=== PATIENT | female | born 1955 | race Caucasian/White ===

== ENCOUNTER → 2024-03-25 16:44 | Outpatient (REF) | payer MEDICARE, OTHER, SELFPAY | LOC: PAVMRI 16:44 | PROVIDERS: ATTENDING PHYSICIAN Physician Assistant; FAMILY PHYSICIAN Family Medicine | DX: M25.511 Pain in right shoulder (principal) | CPT/HCPCS: 73221 ==

== ENCOUNTER → 2024-05-06 14:46 | Outpatient (REF) | payer MEDICARE, OTHER, SELFPAY | LOC: MRI 3T 14:46 | PROVIDERS: ATTENDING PHYSICIAN Otolaryngology; FAMILY PHYSICIAN Family Medicine | DX: H90.A21 Sensorineural hearing loss, unilateral, right ear, with restricted hearing on the contralateral side (principal); H93.11 Tinnitus, right ear | CPT/HCPCS: 70553; A9575 ==

== ENCOUNTER → 2024-07-01 12:37 | Outpatient (REF) | payer MEDICARE, OTHER, SELFPAY | LOC: HWWDC 12:37 | PROVIDERS: ATTENDING PHYSICIAN Family Medicine | DX: Z12.31 Encounter for screening mammogram for malignant neoplasm of breast (principal) | CPT/HCPCS: 77063; 77067 ==

== ENCOUNTER → 2024-07-21 15:08 | Outpatient (REF) | payer MEDICARE, OTHER, SELFPAY | LOC: WDC 15:08 | PROVIDERS: ATTENDING PHYSICIAN Family Medicine | DX: R92.30 Dense breasts, unspecified (principal) | CPT/HCPCS: 76641 ==

== ENCOUNTER → 2024-08-24 12:33 | Outpatient (REF) | payer MEDICARE, OTHER, SELFPAY | LOC: HWRAD 12:33 | PROVIDERS: ATTENDING PHYSICIAN Internal Medicine Interventional Cardiology; FAMILY PHYSICIAN Family Medicine | DX: I71.21 Aneurysm of the ascending aorta, without rupture (principal) | CPT/HCPCS: 71275; Q9967 ==

== ENCOUNTER → 2024-10-06 08:08 | Outpatient (REF) | payer MEDICARE, OTHER, SELFPAY ==
--- NOTE | 2024-10-06 14:00 | OID.BR.INTR ---
[facility] Breast Navigator - Initial
- -
Date of Contact: 10/06/24
Met with patient. Patient given written information on navigator services available at [facility]. Will follow up as needed per protocol.
== END ==
LOC: WDC 08:08
PROVIDERS: ATTENDING PHYSICIAN Surgery
DX: N63.14 Unspecified lump in the right breast, lower inner quadrant (principal)
CPT/HCPCS: 88305; 19083; A4648

== ENCOUNTER → 2024-12-29 14:55 | Outpatient (REF) | payer MEDICARE, OTHER, SELFPAY | LOC: WDC 14:55 | PROVIDERS: ATTENDING PHYSICIAN Surgery; FAMILY PHYSICIAN Family Medicine | DX: R92.8 Other abnormal and inconclusive findings on diagnostic imaging of breast (principal) | CPT/HCPCS: 76642 ==

== ENCOUNTER 2025-06-14 13:54 | Emergency (ER) | payer MEDICARE, OTHER, SELFPAY ==
[2025-06-14 13:57] VITALS: BP 134/98
[2025-06-14] MEDS: ADACEL 0.5 ML IM (14:55)
--- NOTE | 2025-06-14 14:56 | ED.SKININJ ---
HPI-Injury
General
Chief Complaint: Skin Surface Trauma
Source: patient
Exam Limitations: none
Time Seen by Provider: 06/14/25 14:16
History of Present Illness-Injury
Initial Injury comments:
70 year old female [id number] presents with laceration to right ring finger she sustained today using a hedge tremor. Last tetanus unknown. She denies loss of function. No other complaints
Phy Exam
Physical Exam
Physical Exam:
General: Well-appearing female no acute respiratory distress
Skin: 1 cm transverse laceration volar aspect distal portion right ring finger. This is beyond the DIP flexion crease. There is no tendon involvement or significant bleeding
Vascular: Brisk capillary refill to the tip of the finger
Musculoskeletal exam: Good range of motion right ring finger
Course
Orders/Labs/Results
Orders:
Orders
06/14/25 14:51
Tetanus/Diphth/Acelpertussis [Adacel] 0.5 ml IM .ONCE ONE
Vital Signs
Initial and Last Documented VS:
Initial Vital Signs
Temp Pulse Resp BP Pulse Ox
98 F 86 16 134/98 97
06/14/25 13:57 06/14/25 13:57 06/14/25 13:57 06/14/25 13:57 06/14/25 13:57
Last Documented Vital Signs
Temp Pulse Resp BP Pulse Ox
98 F 86 16 134/98 97
06/14/25 13:57 06/14/25 13:57 06/14/25 13:57 06/14/25 13:57 06/14/25 13:57
MDM/Problems Addressed
Differential Diagnosis Includes:
Laceration right ring finger. The wound was copiously irrigated with saline solution and anesthetized in a local fashion using 1% plain lidocaine. 5-0 Prolene sutures were used in a simple interrupted fashion to provide wound edge approximation
hemostasis. A total of 4 sutures were required. Tetanus vaccine updated. Because was applied. Wound care instructions were given. Stable for discharge
*Pulse Oximetry
SaO2: 97
Oxygen Mode of Delivery: Room air
Patient hypoxic: no
*Critical Care Note
Total Time (30-74mins, 75-104mins- exclusive of procedures): Not Applicable
ED Attending Note
-
Portions of this chart may have been created with voice recognition software.� Occasional wrong word or��sound alike� substitutions may have occurred due to the inherent limitations of voice recognition software.
Discharge Plan
Departure
Patient Disposition: Home (Routine Discharge)
Date of Disposition: 06/14/25
Time of Disposition: 15:01
Patient with high blood pressure during this ER visit?: No
Discharge Problem:
Laceration
Instructions: Laceration Repair With Stitches (DC)
Referrals:
Dionne Nuñez DO [Family Provider, Family Practice]
Activity Restrictions/Additional Instructions:
Keep clean. Have sutures removed in 10 to 14 days. Watch for signs of infection. Return if needed otherwise
Interventions
Interventions:
*Risk Screen - Suicide Last Done: 06/14/25 13:57
*Neglect/Abuse Screening Last Done: 06/14/25 13:57
Discharge Date and Time
Print Language: LATVIAN
== END 2025-06-14 15:14 | disposition home or self-care (01) ==
LOC: EMR 13:54
PROVIDERS: EMERGENCY PHYSICIAN Emergency Medicine; FAMILY PHYSICIAN Family Medicine
DX: S61.214A Laceration without foreign body of right ring finger without damage to nail, initial encounter (principal); W29.3XXA Contact with powered garden and outdoor hand tools and machinery, initial encounter; Z23 Encounter for immunization
CPT/HCPCS: 90471; 12001; 99282; 90715

== ENCOUNTER → 2025-07-04 13:45 | Outpatient (REF) | payer MEDICARE, OTHER, SELFPAY | LOC: WDC 13:45 | PROVIDERS: ATTENDING PHYSICIAN Surgery; FAMILY PHYSICIAN Family Medicine | DX: Z12.31 Encounter for screening mammogram for malignant neoplasm of breast (principal); R92.8 Other abnormal and inconclusive findings on diagnostic imaging of breast | CPT/HCPCS: 76642; 77063; 77067 ==

== ENCOUNTER → 2025-08-08 15:12 | Outpatient (REF) | payer MEDICARE, OTHER, SELFPAY | LOC: RAD 15:12 | PROVIDERS: ATTENDING PHYSICIAN Obstetrics & Gynecology; FAMILY PHYSICIAN Family Medicine | DX: M85.80 Other specified disorders of bone density and structure, unspecified site (principal); Z78.0 Asymptomatic menopausal state | CPT/HCPCS: 77080 ==